=== PATIENT | male | born 1995 | race Caucasian/White ===

== ENCOUNTER 2020-04-09 19:30 | Emergency (ER) | payer SELFPAY ==
[~2020-04-09] VITALS: Ht 167.6 cm; Wt 73.1 kg
[2020-04-09 19:45] VITALS: BP 142/117
--- NOTE | 2020-04-09 19:49 | PHYS DOC ---
Adult General Chief Complaint Chief Complaint: FINGER INJURY HPI HPI Patient is an otherwise healthy 24-year-old male who presents with a chief complaint of swelling around the middle finger of the left hand. Patient states that he has had these several times in the past but they usually went away on it s own. States he bites his nails constantly and thinks that may be part of the issue. States the swelling began a couple days ago. Denies any other trauma to the area. Denies fevers, chills, nausea, vomiting. States it is only slightly tender at 2 out of 10 and that is when he pushes on it. States he is not up-to-date on his tetanus vaccination. Review of Systems Review of Systems Review of systems otherwise unremarkable except noted in HPI Physical Exam Physical Exam Constitutional: Well developed, well nourished, no acute distress, non-toxic appearance. [] conjunctiva normal, no discharge. [] Neck: Normal range of motion, Cardiovascular:Heart rate regular rhythm, no murmur [] Skin: Patient with mild swelling and tenderness with minimal erythema around middle finger of left hand suggestive of paronychia. Neurologic: Alert and oriented X 3, normal motor function, normal sensory function, no focal deficits noted. [] Psychologic: Affect normal, judgement normal, mood normal. [] EKG EKG [] Radiology/Procedures Radiology/Procedures Indication: Paronychia Procedure: The area was cleaned with iodine. Patient offered digital block versus ice. Patient opted for ice as he stated he has had injections of lidoca ine before and that would probably hurt more than the incision. Area was incised with an 18-gauge needle and purulent material expressed. Area cleaned again and bandaged. The patient tolerated the procedure well Complications: No Heart Score Risk Factors: Risk Factors: DM, Current or recent (<one month) smoker, HTN, HLP, family history of CAD, obesity. Risk Scores: Risk Factors: DM, Current or recent (<one month) smoker, HTN, HLP, family history of CAD, obesity. Course & Med Decision Making Course & Med Decision Making Patient is a 24-year-old male who presents with a chief complaint of swelling about the nail of the left middle finger for 1 to 2 days Vital signs not concerning. Physical exam noted above. Exam suggestive of paronychia. Updated on tetanus vaccination. Patient's finger numbed with ice. Wound aspirated successfully. Patient started on 3-day course of antibiotics and advised not to bite his nails. Advised to follow-up with his primary care physician in the next few days to set up a post ER follow-up wound check. Advised to come back to the ED with new or concerning symptoms. Patient grateful, verbalized understanding and agreed with plan of discharge. [] Dragon Disclaimer Dragon Disclaimer This electronic medical record was generated, in whole or in part, using a voice recognition dictation system. Departure Departure: Impression: Primary Impression: Paronychia Disposition: 01 DC HOME SELF CARE/HOMELESS Condition: IMPROVED Referrals: PCP,NO (PCP) Patient Instructions: Paronychia, [id number] Additional Instructions: Please read all the attached information. Please take antibiotics as prescribed. You can use Tylenol, ibuprofen and ice as needed for pain control at home. Please do not bite your nails as this can transfer infected bacteria into the skin. Please follow-up with your primary care physician as soon as you can to discuss your ED visit and have a wound check. Please come back to the emergency department immediately with any new or concerning symptoms. Scripts Cephalexin (CEPHALEXIN) 500 Mg Capsule 1 CAP PO TID for infection for 3 Days, #9 CAP Prov: RADHA GARSIA MD 04/09/20 RADHA GARSIA MD Apr 09, 2020 19:49
[2020-04-09] MEDS ORDERED: CEPHALEXIN 250 MG CAPSULE PO ONE (20:00)
[2020-04-09] MEDS ORDERED: CEPH500C PO (20:02)
[2020-04-09] MEDS ORDERED: DIPH,PERTUSS(ACELL),TET VAC/PF 0.5 ML SYRINGE. VAX IM ONE ×2 (20:15)
== END 2020-04-09 20:23 | disposition home or self-care (01) ==
LOC: ER 19:30
DX: L03.012 Cellulitis of left finger (principal); L53.9 Erythematous condition, unspecified
CPT/HCPCS: 10060; 90471; 90715; 99283